=== PATIENT | female | born 1950 | race Two or more races ===

== ENCOUNTER 2018-12-10 06:25 | Day surgery (SDC) | payer OTHER ==
[~2018-12-10 06:25] MED LIST: ATROVENT21 MCG PO; AZOPT5 ML; CIPRO500 MG PO; INTESTINEX1 CA1 PO; LOSARTAN-HCTZ1 EAC2 PO; METFORMIN HCL500 MG PO; PERCOCET 5/321 UDTAB PO; PROTONIX40 MG PO; REFRESH15 ML OP; SEPTRA DS TABLE1 TAB PO; SYNTHROID50 MCG PO; TIMOLOL MALEATE5 M1; TRAM1TAB PO; XALATAN
== END 2018-12-10 10:45 | disposition home or self-care (01) ==
LOC: AMB-ENDOS 06:25
DX: K52.89 Other specified noninfective gastroenteritis and colitis (principal)

== ENCOUNTER 2020-12-07 06:31 | Day surgery (SDC) | payer OTHER | END 2020-12-07 10:40 | disposition home or self-care (01) | LOC: AMB-ENDOS 06:31 | PROVIDERS: ATTEND Surgery | DX: D12.2 Benign neoplasm of ascending colon (principal); Z20.822 Contact with and (suspected) exposure to COVID-19 ==

== ENCOUNTER 2021-01-06 07:16 | Day surgery (SDC) | payer OTHER ==
[~2021-01-06 07:16] MED LIST changes: +GABAPENT PO; +LIPOFEN150 MG PO; +VITAMIN D PO
[2021-01-06] MEDS ORDERED: ULTRACET PO (09:18)
== END 2021-01-06 11:20 | disposition home or self-care (01) ==
LOC: CIR.AMB 07:16
PROVIDERS: ATTEND Surgery
DX: C20 Malignant neoplasm of rectum (principal)

== ENCOUNTER 2021-02-14 08:01 | Outpatient (CLI) | payer OTHER ==
[~2021-02-14 08:01] MED LIST changes: +ULTRACET PO
== END 2021-02-14 08:07 | disposition home or self-care (01) ==
LOC: TOM 08:01
PROVIDERS: ATTEND Surgery
DX: C20 Malignant neoplasm of rectum (principal); D12.2 Benign neoplasm of ascending colon; R19.4 Change in bowel habit; Z93.2 Ileostomy status
CPT/HCPCS: 74177; Q9965

== ENCOUNTER 2021-02-21 10:53 | Outpatient (CLI) | payer OTHER | END 2021-02-21 11:00 | disposition home or self-care (01) | LOC: RX STUDY 10:53 | DX: Q00-Q99 Congenital malformations, deformations and chromosomal abnormalities (principal) ==

== ENCOUNTER 2021-08-03 15:33 | Emergency (ER) | payer OTHER ==
[~2021-08-03] VITALS: Ht 152.4 cm; Wt 68.0 kg
[~2021-08-03 15:33] MED LIST changes: +ATORVASTATIN CA40 MG; +FLONASE16 GM; +GABAPENTIN400 MG; +INTESTINEX680 M1; +LATANOPROST2.5 ML; +LOSARTAN POTAS100 MG; +SYNTHROID75 MCG
[2021-08-04] MEDS ORDERED: CEFPODOXIME PR200 MG PO (00:43)
== END 2021-08-04 00:50 | disposition home or self-care (01) ==
LOC: ER 15:33
DX: K62.5 Hemorrhage of anus and rectum (principal); N30.90 Cystitis, unspecified without hematuria; E11.21 Type 2 diabetes mellitus with diabetic nephropathy; I10 Essential (primary) hypertension; E07.9 Disorder of thyroid, unspecified

== ENCOUNTER 2021-09-13 12:35 | Outpatient (CLI) | payer OTHER ==
[~2021-09-13 12:35] MED LIST changes: +CEFPODOXIME PR200 MG PO
== END 2021-09-13 12:54 | disposition home or self-care (01) ==
LOC: MRI 12:35
DX: M51.17 Intervertebral disc disorders with radiculopathy, lumbosacral region (principal)
CPT/HCPCS: 72148

== ENCOUNTER 2022-03-29 11:48 | Outpatient (CLI) | payer OTHER | END 2022-03-29 23:00 | disposition home or self-care (01) | LOC: LAB 11:48 | DX: D63.0 Anemia in neoplastic disease (principal) ==

== ENCOUNTER 2022-04-21 07:28 | Outpatient (CLI) | payer OTHER | END 2022-04-21 07:36 | disposition home or self-care (01) | LOC: TOM 07:28 | DX: Z51.11 Encounter for antineoplastic chemotherapy (principal); C20 Malignant neoplasm of rectum; E86.0 Dehydration; D63.0 Anemia in neoplastic disease; Z45.2 Encounter for adjustment and management of vascular access device | CPT/HCPCS: 71275 ==

== ENCOUNTER 2022-10-06 08:20 | Outpatient (CLI) | payer OTHER | END 2022-10-06 08:22 | disposition home or self-care (01) | LOC: LAB 08:20 | DX: D64.9 Anemia, unspecified (principal); I11.9 Hypertensive heart disease without heart failure; N39.9 Disorder of urinary system, unspecified; D68.9 Coagulation defect, unspecified; Z20.822 Contact with and (suspected) exposure to COVID-19 ==

== ENCOUNTER 2023-05-07 08:59 | Outpatient (CLI) | payer OTHER | END 2023-05-07 09:03 | disposition home or self-care (01) | LOC: TOM 08:59 | DX: C20 Malignant neoplasm of rectum (principal) | CPT/HCPCS: 71270; 74178; Q9965 ==

== ENCOUNTER 2023-11-20 15:56 | Emergency (ER) | payer OTHER ==
[~2023-11-20] VITALS: Ht 152.4 cm; Wt 64.4 kg
[2023-11-20] MEDS ORDERED: KETOROLAC TROMETHAMINE 30 MG VIAL IM ONE (18:15)
[2023-11-20] MEDS ORDERED: ORPHENADRINE CITRATE 30 MG/ML AMPUL IM ONE (18:15)
[2023-11-20] MEDS ORDERED: KETOROLAC TROMETHAMINE 30 MG VIAL ONE (18:26)
[2023-11-20] MEDS ORDERED: ORPHENADRINE CITRATE 30 MG/ML AMPUL ONE (18:26)
== END 2023-11-20 18:53 | disposition home or self-care (01) ==
LOC: ER 15:58
DX: S39.82XA Other specified injuries of lower back, initial encounter (principal); W19.XXXA Unspecified fall, initial encounter; Y93.89 Activity, other specified; Y92.89 Other specified places as the place of occurrence of the external cause; Y99.8 Other external cause status
CPT/HCPCS: 72070; 72100; 73610; 96372; 99283; J1885; J3490

== ENCOUNTER 2024-02-13 12:40 | Emergency (ER) | payer OTHER ==
[~2024-02-13] VITALS: Ht 152.4 cm; Wt 65.8 kg
[2024-02-13] MEDS ORDERED: INTEGRA F CAPS1 EACH PO (13:05)
[2024-02-13] MEDS ORDERED: FAMOTIDINE/PF 20 MG in 0.9 % SODIUM CHLORIDE 8 ML IV PUSH STA (13:33)
[2024-02-13] MEDS ORDERED: CLONIDINE HCL 0.1 MG TABLET PO ONE (13:45)
[2024-02-13] MEDS ORDERED: ONDANSETRON HCL 2 MG/ML VIAL IV ONE (13:45)
[2024-02-13] MEDS ORDERED: ENALAPRILAT DIHYDRATE 1.25 MG/ML VIAL IV ONE (13:45)
[2024-02-13 15:19] LABS: HEMATOCRIT 35.7 % (36.0-45.00); HEMOGLOBIN 11.9 g/dL (12.0-15.00); MEAN CELL VOLUME 81.8 fL (80.00-100.00); MEAN CORPUSCULAR HEMOGLOBIN 27.3 pg (27.00-32.0); MEAN CORPUSCULAR HGB CONC 33.4 g/dl (32.0-36.0); PLATELET COUNT 191 K/uL (150-450); RED BLOOD COUNT 4.36 M/uL (4.00-6.00); RED CELL DISTRIBUTION WIDTH 14.6 % (11.5-14.5)
[2024-02-13 15:43] LABS: ALBUMIN 4.4 gm/dL (3.4-5.0); BILIRUBIN TOTAL 0.44 mg/dL (0.3-1.2); CALCIUM 9.3 mg/dL (8.5-10.1); CREATININE SERUM 1.17 mg/dL (0.55-1.02); GFR 45.47; GLOBULINA 3.5 G/DL (2.4-3.5); POTASSIUM 3.88 mEq/L (3.5-5.1); TOTAL PROTEIN 7.9 gm/dL (6.4-8.2)
[2024-02-13] MEDS ORDERED: PEPCID AC20 MG PO (15:54)
[2024-02-13] MEDS ORDERED: ACETAMINOPHEN 500 MG GEL..CAP PO ONE (16:00)
[2024-02-13 16:08] VITALS: BP 140/80; O2SAT 98
== END 2024-02-13 16:09 | disposition home or self-care (01) ==
LOC: ER 12:40
PROVIDERS: General Practice
DX: R11.0 Nausea (principal); I10 Essential (primary) hypertension; Z20.822 Contact with and (suspected) exposure to COVID-19
CPT/HCPCS: 36415; 96365; 99282; J2405; J3490 ×2

== ENCOUNTER → 2025-02-05 | Outpatient (CLI) | payer OTHER ==
[~2025-02-05] MED LIST changes: +INTEGRA F CAPS1 EACH PO; +PEPCID AC20 MG PO
== END | disposition home or self-care (01) ==
LOC: MAMO-SONO 08:43
PROVIDERS: ATTEND Internal Medicine Pulmonary Disease
DX: R06.09 Other forms of dyspnea (principal); N18.32 Chronic kidney disease, stage 3b; Z12.31 Encounter for screening mammogram for malignant neoplasm of breast

== ENCOUNTER 2025-02-06 08:08 | Outpatient (CLI) | payer OTHER | END 2025-02-06 08:10 | disposition home or self-care (01) | LOC: TOM 08:08 | PROVIDERS: ATTEND Specialist | DX: C20 Malignant neoplasm of rectum (principal); M25.50 Pain in unspecified joint | CPT/HCPCS: 71270; 74178; Q9965 ==

== ENCOUNTER 2025-03-08 19:39 | Emergency (ER) | payer OTHER ==
[~2025-03-08] VITALS: Ht 152.4 cm; Wt 64.4 kg
[2025-03-09 00:10] LABS: BASO % 0.8 % (0.1-1.2); EOS # 0.14 (0.04-0.54); EOS % 1.8 % (0.7-7.0); LYMPH # 2.14 (1.18-3.74); LYMPH % 28.0 % (19.3-53.1); MEAN PLATELET VOLUME 10.10 fl (9.4-12.4); MONO # 0.66 (0.24-0.82); MONO % 8.6 % (4.7-12.5); NEUT # 4.63 (1.56-6.13); NEUT % 60.5 % (34.0-71.1); RED CELL DISTRIBUTION WIDTH 12.9 % (11.6-14.4)
[2025-03-09 00:22] LABS: ALT/SGPT 24.0 U/L (12-78); AST/SGOT 26.0 U/L (15-37); BILIRUBIN TOTAL 0.47 mg/dL (0.3-1.2); BUN CREA RATIO 20.0 (7.0-25.0); CREATININE SERUM 1.22 mg/dL (0.55-1.02); GFR 43.2; GLOBULINA 4.1 G/DL (2.4-3.5); GLUCOSE FASTING 129.0 mg/dL (65-100); OSMOLALITY SERUM 291.0 MOSM/KG (275-295)
== END 2025-03-09 02:13 | disposition home or self-care (01) ==
LOC: ER 19:40
PROVIDERS: Preventive Medicine Public Health & General Preventive Medicine
DX: T65.891A Toxic effect of other specified substances, accidental (unintentional), initial encounter (principal); R06.02 Shortness of breath; Y92.012 Bathroom of single-family (private) house as the place of occurrence of the external cause; R00.2 Palpitations; I10 Essential (primary) hypertension; E03.9 Hypothyroidism, unspecified; Z87.09 Personal history of other diseases of the respiratory system